=== PATIENT | female | born 1945 | race Caucasian/White ===

== ENCOUNTER 2021-04-08 18:36 | Inpatient (IN) ==
[2021-04-08] MEDS ORDERED: Ondansetron 4 MG/2 ML VIAL IVP ONE (18:47)
[2021-04-08 20:23] LABS: Basophils % 4.3 %; Hematocrit 17.8 % (35.3-44.9); Hemoglobin 6.1 g/dL (11.5-15.4); Immature Granulocytes % 4.3 % (0-4); Immature Platelets 4.9 % (1.1-6.1); Lymphocytes # 0.1 K/mcL (0.6-4.6); Lymphocytes % 65.2 %; Mean Corpuscular HGB Conc 34.3 g/dL (31.6-35.5); Mean Corpuscular Hemoglobin 30.3 pg (28.0-33.3); Mean Corpuscular Volume 88.6 fL (83.0-100.0); Mean Platelet Volume 12.3 fL (9.4-12.4); Red Blood Count 2.01 M/mcL (3.82-4.97); Red Cell Distribution Width 16.5 % (11.5-14.5); Segmented Neutrophils % 13.2 %
[2021-04-08 20:35] LABS: Platelet Count 20 K/mcL (140-400); White Blood Count 0.2 K/mcL (4.3-11.1)
[2021-04-08] MEDS ORDERED: 0.9 % Sodium Chloride 500 ML ONE (20:42)
[2021-04-08 20:43] LABS: Albumin 3.7 g/dL (3.5-5.7); Albumin/Globulin Ratio 1.3 (1.1-2.2); Bilirubin,Direct 0.3 mg/dL (0.0-0.2); Bilirubin,Indirect 0.9 mg/dL (0.0-1.0); Bilirubin,Total 1.2 mg/dL (0.3-1.0); Calcium 7.1 mg/dL (8.6-10.3); Globulin 2.8 g/dL (2.4-3.5); Potassium 3.2 mEq/L (3.5-5.1); Total Protein 6.5 g/dL (6.4-8.9)
[2021-04-08] MEDS ORDERED: levoFLOXacin 750 MG/150 ML 750 MG/150 ML BAG IVPB ONE (20:53)
[2021-04-08] MEDS ORDERED: Vancomycin 1,250 MG/262.5 ML IV.SOLN IVPB ONE (21:00)
[2021-04-08 21:09] LABS: Platelet Estimate Marked Decrease (Normal)
[2021-04-08] MEDS ORDERED: Pantoprazole 40 MG VIAL IVP ONE (21:32)
[2021-04-08 21:42] LABS: Bilirubin,Urine Negative (Negative); Blood,Urine Negative (Negative); Clarity,Urine Clear (Clear); Color,Urine Light-Orange (Yellow); Glucose,Urine (UA) Normal (Normal); Ketones,Urine Trace mg/dL (Negative); Leukocyte Esterase,Urine Negative (Negative); Nitrite,Urine Negative (Negative); Protein,Urine Trace mg/dL (Neg-Trace); Specific Gravity,Urine 1.017 (1.010-1.025); Urobilinogen,Urine Normal (Normal)
[2021-04-08] MEDS ORDERED: Naloxone 0.4 MG/ML INJ IVP PRN (23:50)
[2021-04-08] MEDS ORDERED: Ondansetron 4 MG/2 ML VIAL IVP PRN (23:50)
[2021-04-08] MEDS ORDERED: Ipratropium/Albuterol Neb 3 ML IH PRN (23:52)
[2021-04-08] MEDS ORDERED: Calcium Gluconate 1gm/50mL 1 GM/50 ML BAG IVPB ONE (23:53)
[2021-04-09] MEDS ORDERED: Ipratropium/Albuterol Neb 3 ML IH PRN (00:44)
[2021-04-09] MEDS ORDERED: Potassium Chloride 40 MEQ, Lidocaine 1% 2 ML in 0.9 % Sodium Chloride 500 ML IVPB ONE (01:00)
[2021-04-09 03:36] LABS: Basophils % 4.5 %; Eosinophils % 4.5 %; Immature Granulocytes % 4.5 % (0-4); Monocytes % 13.6 %; Red Cell Distribution Width 15.5 % (11.5-14.5)
[2021-04-09 03:39] LABS: Hematocrit 20.5 % (35.3-44.9); Hemoglobin 6.9 g/dL (11.5-15.4); Immature Platelets 4.8 % (1.1-6.1); Lymphocytes % 68.2 %; Mean Corpuscular HGB Conc 33.7 g/dL (31.6-35.5); Mean Corpuscular Hemoglobin 29.9 pg (28.0-33.3); Mean Corpuscular Volume 88.7 fL (83.0-100.0); Red Blood Count 2.31 M/mcL (3.82-4.97); Segmented Neutrophils % 4.7 %
[2021-04-09 03:44] LABS: INR 1.5; Prothrombin Time 16.7 Seconds (9.4-12.1)
[2021-04-09 03:45] LABS: Lymphocytes # 0.1 K/mcL (0.6-4.6)
[2021-04-09 03:47] LABS: Platelet Count 15 K/mcL (140-400); White Blood Count 0.2 K/mcL (4.3-11.1)
[2021-04-09 03:57] LABS: Platelet Estimate Marked Decrease (Normal)
[2021-04-09 04:00] LABS: Alanine Aminotransferase 10 Units/L (7-52); Albumin 3.2 g/dL (3.5-5.7); Albumin/Globulin Ratio 1.2 (1.1-2.2); Alkaline Phosphatase 73 Units/L (34-104); Aspartate Amino Transferase 12 Units/L (13-39); BUN/Creatinine Ratio 27 (6-26); Bilirubin,Total 1.2 mg/dL (0.3-1.0); Blood Urea Nitrogen 25 mg/dL (8-23); Carbon Dioxide 25 mEq/L (23-29); Chloride 101 mEq/L (98-107); Globulin 2.7 g/dL (2.4-3.5); Glucose 114 mg/dL (70-105); Magnesium 0.6 mg/dL (1.6-2.6); Osmolality,Calculated 287 (280-300); Potassium 3.1 mEq/L (3.5-5.1); Sodium 136 mEq/L (136-145); Total Protein 5.9 g/dL (6.4-8.9); eGFR For African Americans > 60 (> 60); eGFR For Non-African Americans 60 (> 60)
[2021-04-09] MEDS ORDERED: GI Cocktail 40 ML EACH PO ONE (04:28)
[2021-04-09] MEDS ORDERED: 0.9 % Sodium Chloride 250 ML ONE (04:39)
[2021-04-09] MEDS ORDERED: *HR* Promethazine 25 MG/ML VIAL IM ONE (05:42)
[2021-04-09] MEDS ORDERED: Potassium Chloride Elixir 20 MEQ/15 ML UDC PO ONE (08:00)
[2021-04-09] MEDS: Famotidine 20 MG TABLET PO SCH ×2 (09:09→21:32)
[2021-04-09 11:33] LABS: Red Cell Distribution Width 15.1 % (11.5-14.5)
[2021-04-09 11:35] LABS: Hematocrit 27.5 % (35.3-44.9); Hemoglobin 9.4 g/dL (11.5-15.4); Immature Platelets 5.1 % (1.1-6.1); Mean Corpuscular HGB Conc 34.2 g/dL (31.6-35.5); Mean Corpuscular Hemoglobin 30.1 pg (28.0-33.3); Mean Corpuscular Volume 88.1 fL (83.0-100.0); Monocytes # 0.1 K/mcL (0.0-1.3); Neutrophils # 0.1 K/mcL (1.6-8.9); Red Blood Count 3.12 M/mcL (3.82-4.97)
[2021-04-09 11:39] LABS: Platelet Count 12 K/mcL (140-400); White Blood Count 0.4 K/mcL (4.3-11.1)
[2021-04-09 12:12] LABS: Lymphocytes # 0.3 K/mcL (0.6-4.6)
[2021-04-09 12:13] LABS: Dohle Bodies Present (Not Present); Platelet Estimate Marked Decrease (Normal); Reactive Lymphocytes Present (Not Present); Toxic Granulation Present (Not Present)
[2021-04-09] MEDS ORDERED: Prochlorperazine 10 MG/2 ML VIAL IVP PRN (13:54)
[2021-04-09] MEDS: 0.9 % Sodium Chloride w KCl 40 MEQ/1,000 ML MLS IVC SCH (14:42)
[2021-04-09] MEDS ORDERED: Magnesium Sulfate 3 GM in 0.9 % Sodium Chloride 100 ML IVPB ONE (15:00)
[2021-04-09] MEDS: Metoprolol XL (24 HR) Succ 50 MG TAB.ER.24H PO SCH (16:56)
[2021-04-09] MEDS ORDERED: Magnesium Sulfate 1 GM/102 ML PIGGYBACK IVPB ONE (17:00)
[2021-04-09] MEDS ORDERED: Ondansetron 4 MG/2 ML VIAL IVP SCH (18:00)
[2021-04-09] MEDS: Haloperidol Lactate 5 MG/ML VIAL IVP SCH (18:26)
[2021-04-09] MEDS: Ondansetron 4 MG/2 ML VIAL IVP SCH (21:32)
[2021-04-09] MEDS: allopurinoL 300 MG TABLET PO SCH (21:32)
[2021-04-09] MEDS: Sucralfate 1 GM TABLET PO SCH (21:32)
[2021-04-10] MEDS: Haloperidol Lactate 5 MG/ML VIAL IVP SCH ×3 (00:38→12:55)
[2021-04-10] MEDS ORDERED: Vancomycin 1,250 MG/262.5 ML IV.SOLN IVPB SCH (01:00)
[2021-04-10] MEDS: Ondansetron 4 MG/2 ML VIAL IVP SCH ×3 (04:48→15:43)
[2021-04-10] MEDS: 0.9 % Sodium Chloride w KCl 40 MEQ/1,000 ML MLS IVC SCH (05:13)
[2021-04-10 05:54] LABS: Hemoglobin 7.9 g/dL (11.5-15.4); Red Cell Distribution Width 14.9 % (11.5-14.5)
[2021-04-10 05:56] LABS: Basophils % 2.1 %; Eosinophils % 2.1 %; Hematocrit 22.6 % (35.3-44.9); Immature Platelets 5.9 % (1.1-6.1); Lymphocytes # 0.2 K/mcL (0.6-4.6); Lymphocytes % 41.7 %; Mean Corpuscular Hemoglobin 30.9 pg (28.0-33.3); Mean Corpuscular Volume 88.3 fL (83.0-100.0); Monocytes # 0.1 K/mcL (0.0-1.3); Monocytes % 16.7 %; Neutrophils # 0.2 K/mcL (1.6-8.9); Red Blood Count 2.56 M/mcL (3.82-4.97); Segmented Neutrophils % 37.4 %
[2021-04-10 06:02] LABS: Platelet Count 10 K/mcL (140-400); White Blood Count 0.5 K/mcL (4.3-11.1)
[2021-04-10 06:11] LABS: BUN/Creatinine Ratio 25 (6-26); Blood Urea Nitrogen 20 mg/dL (8-23); Calcium 6.6 mg/dL (8.6-10.3); Carbon Dioxide 23 mEq/L (23-29); Chloride 103 mEq/L (98-107); Glucose 84 mg/dL (70-105); Osmolality,Calculated 286 (280-300); Potassium 3.4 mEq/L (3.5-5.1); Sodium 137 mEq/L (136-145); eGFR For African Americans > 60 (> 60); eGFR For Non-African Americans > 60 (> 60)
[2021-04-10 06:28] LABS: Reactive Lymphocytes Present (Not Present); Toxic Granulation Present (Not Present)
[2021-04-10 06:29] LABS: Platelet Estimate Marked Decrease (Normal)
[2021-04-10] MEDS ORDERED: Famotidine 20 MG TABLET PO SCH (09:00)
[2021-04-10] MEDS ORDERED: levoFLOXacin 750 MG/150 ML 750 MG/150 ML BAG IVPB SCH (09:00)
[2021-04-10] MEDS ORDERED: Loratadine 10 MG TABLET PO SCH (09:00)
[2021-04-10] MEDS ORDERED: Spironolactone 12.5 MG TABLET PO SCH (09:00)
[2021-04-10] MEDS: Famotidine 20 MG TABLET PO SCH (09:32)
[2021-04-10] MEDS: Metoprolol XL (24 HR) Succ 50 MG TAB.ER.24H PO SCH (09:32)
[2021-04-10] MEDS: allopurinoL 300 MG TABLET PO SCH (09:33)
[2021-04-10] MEDS: Sucralfate 1 GM TABLET PO SCH (09:34)
[2021-04-10] MEDS: Calcium Gluconate 1gm/50mL 1 GM/50 ML BAG IVPB SCH ×2 (12:55→14:21)
[2021-04-10 14:37] LABS: Magnesium 1.1 mg/dL (1.6-2.6)
[2021-04-10 16:21] VITALS: BP 160/78
[2021-04-11] MEDS ORDERED: levoFLOXacin 750 MG/150 ML 750 MG/150 ML BAG IVPB SCH (09:00)
== END 2021-04-10 17:14 | disposition home health service (06) | DRG 391 ==
LOC: CDU 18:36 → EMEROOARM 18:36 → SUATTDRO 23:39 → CDU 04-09 00:30 → 2ANU 04-09 19:37
PROVIDERS: ADMIT Internal Medicine; ATTEND Internal Medicine